=== PATIENT | male | born 1945 | race Caucasian/White ===

== ENCOUNTER 2018-05-02 15:50 | Outpatient (CLI) | payer MEDICARE ==
--- NOTE | 2018-05-02 17:23 | RAD ---
TWO VIEW CHEST: 05/02/18 INDICATION: Cough. No comparison. No evidence of lung infiltrate. Heart size is upper normal. Vascular markings are within normal range . Osseous structures are unremarkable. IMPRESSION: No evidence of focal infiltrate. POS: [facility]
== END 2018-05-02 15:51 | disposition home or self-care (01) ==
LOC: NAV RAD 15:50
PROVIDERS: ATTEND Family Medicine
DX: R05 Cough (principal)
CPT/HCPCS: 71046

== ENCOUNTER 2018-12-11 05:58 | Emergency (ER) | payer MEDICARE ==
[2018-12-11] MEDS ORDERED: Fluorescein Opthalmic Strip ONE (06:43)
[2018-12-11 06:57] LABS: #Basophils 0.1 thou/uL (0.0-0.2); #Eosinphils 0.2 thou/uL (0.0-0.7); #Lymphocytes 1.6 thou/uL (1.20-3.40); #Monocytes 0.5 thou/uL (0.11-0.59); #Neutrophils 3.2 thou/uL (1.40-6.50); %Basophils 1.2 % (0.0-1.0); %Lymphocytes 29.6 % (21.0-51.0); %Monocytes 9.3 % (0.0-10.0); %Neutrophils 56.9 % (42.0-75.0); Hemoglobin 14.2 g/dL (14.0-18.0); Mean Corpuscular HGB CONC 34.2 g/dL (32.0-36.0); Mean Corpuscular Hemoglobin 28.7 pg (27.0-31.0); Mean Corpuscular Volume 84.1 fL (78.0-98.0); Mean Platelet Volume 8.5 fL (7.4-10.4); Platelet Count 121 thou/uL (130-400); RBC Distribution Width 12.2 % (11.5-14.5); Red Blood Cell (RBC) Count 4.94 mill/uL (4.70-6.10); White Blood Cell (WBC) Count 5.5 thou/uL (4.8-10.8)
[2018-12-11 07:05] LABS: ALT (SGPT) 27 U/L (8-55); AST (SGOT) 20 U/L (5-34); Albumin 3.7 g/dL (3.4-4.8); Alkaline Phosphatase 74 U/L (40-150); Anion Gap 16 mmol/L (10-20); BUN (Urea Nitrogen) 28 mg/dL (8.4-25.7); Bilirubin, Total 0.5 mg/dL (0.2-1.2); Calc. Creatinine Clearance 0 mL/min (70-130); Calcium 9.7 mg/dL (7.8-10.44); Carbon Dioxide 18 mmol/L (23-31); Chloride 109 mmol/L (98-107); Estimated GFR-MDRD 46; Globulin 2.8 g/dL (2.4-3.5); Glucose 151 mg/dL (83-110); Potassium 4.1 mmol/L (3.5-5.1); Protein, Total 6.5 g/dL (5.8-8.1); Sodium 139 mmol/L (136-145)
[2018-12-11] MEDS ORDERED: Aspirin Chewable 81 MG TAB ONE (07:10)
[2018-12-11 07:23] LABS: CKMB 3.6 ng/mL (0-6.6)
[2018-12-11 08:21] LABS: Bilirubin Negative (Negative); Blood, Urine Negative (Negative); Clarity Clear (Clear); Glucose, Urine (Dipstick) Negative (Negative); Leukocyte Negative (Negative); Nitrite Negative (Negative); Protein, Urine (Dipstick) Negative (Neg-Trace); Urobilinogen 0.2 mg/dL (Less than 2)
--- NOTE | 2018-12-11 09:04 | RAD ---
CHEST 2 VIEWS: Date: 12/11/18 HISTORY: Chest pain. COMPARISON: 05/02/18. FINDINGS: No confluent pneumonia. No overt edema. IMPRESSION: Borderline size heart. No acute intrathoracic disease. No evidence for pneumonia or acute edema. POS: [facility]
== END 2018-12-11 08:33 | disposition home or self-care (01) ==
LOC: NAV ERS 05:58
DX: I20.8 Other forms of angina pectoris (principal); B02.9 Zoster without complications; I10 Essential (primary) hypertension; Z79.82 Long term (current) use of aspirin
CPT/HCPCS: 71046; 80053; 81003; 82553; 83880; 84484; 85025; 93005; 94760

== ENCOUNTER 2020-10-29 20:32 | Emergency (ER) | payer MEDICARE | END 2020-10-29 21:42 | disposition home or self-care (01) | LOC: NAV ERS 20:32 | DX: K56.41 Fecal impaction (principal); J44.9 Chronic obstructive pulmonary disease, unspecified; E78.5 Hyperlipidemia, unspecified; K21.9 Gastro-esophageal reflux disease without esophagitis; I11.0 Hypertensive heart disease with heart failure; I50.9 Heart failure, unspecified; N40.0 Benign prostatic hyperplasia without lower urinary tract symptoms; Z79.899 Other long term (current) drug therapy | CPT/HCPCS: 99283 ==

== ENCOUNTER 2021-08-28 14:41 | Emergency (ER) | payer MEDICARE ==
[2021-08-28 15:17] LABS: #Basophils 0.1 thou/uL (0.0-0.2); #Eosinphils 0.1 thou/uL (0.0-0.7); #Lymphocytes 2.7 thou/uL (1.20-3.40); #Monocytes 0.4 thou/uL (0.11-0.59); #Neutrophils 3.7 thou/uL (1.40-6.50); %Eosinophils 1.3 % (0.0-10.0); %Lymphocytes 39.4 % (21.0-51.0); %Monocytes 5.5 % (0.0-10.0); %Neutrophils 52.9 % (42.0-75.0); Hemoglobin 16.1 g/dL (14.0-18.0); Mean Corpuscular HGB CONC 30.7 g/dL (32.0-36.0); Mean Corpuscular Volume 91.2 fL (78.0-98.0); Mean Platelet Volume 9.4 fL (7.4-10.4); Platelet Count 182 thou/uL (130-400); RBC Distribution Width 12.8 % (11.5-14.5); Red Blood Cell (RBC) Count 5.76 mill/uL (4.70-6.10); White Blood Cell (WBC) Count 6.9 thou/uL (4.8-10.8)
== END 2021-08-28 15:42 | disposition home or self-care (01) ==
LOC: NAV ERS 14:41
DX: K59.00 Constipation, unspecified (principal); K21.9 Gastro-esophageal reflux disease without esophagitis; E78.5 Hyperlipidemia, unspecified; J44.9 Chronic obstructive pulmonary disease, unspecified; I48.91 Unspecified atrial fibrillation; I11.0 Hypertensive heart disease with heart failure; I50.9 Heart failure, unspecified; Z85.46 Personal history of malignant neoplasm of prostate; Z95.0 Presence of cardiac pacemaker
CPT/HCPCS: 85025; 99284

== ENCOUNTER 2023-12-27 13:42 | Emergency (ER) | payer OTHER ==
[2023-12-27 14:02] LABS: #Basophils 0.1 thou/uL (0.0-0.2); #Eosinphils 0.1 thou/uL (0.0-0.7); #Lymphocytes 2.2 thou/uL (1.20-3.40); #Monocytes 0.4 thou/uL (0.11-0.59); #Neutrophils 3.8 thou/uL (1.40-6.50); %Basophils 1.2 % (0.0-1.0); %Eosinophils 1.7 % (0.0-10.0); %Lymphocytes 33.5 % (21.0-51.0); %Monocytes 5.3 % (0.0-10.0); %Neutrophils 58.3 % (42.0-75.0); Hematocrit 40.9 % (42.0-52.0); Hemoglobin 13.1 g/dL (14.0-18.0); Mean Corpuscular Hemoglobin 28.5 pg (27.0-31.0); Mean Platelet Volume 8.4 fL (7.4-10.4); Platelet Count 141 10x3/uL (130-400); RBC Distribution Width 14.4 % (11.5-14.5); White Blood Cell (WBC) Count 6.5 10x3/uL (4.8-10.8)
[2023-12-27 14:13] LABS: INR-International Normal Ratio 1.2; Prothrombin Time 14.8 sec (12.0-14.7)
[2023-12-27 14:14] LABS: PTT 28.5 sec (22.9-36.1)
[2023-12-27 14:20] LABS: ALT (SGPT) 12 U/L (8-55); AST (SGOT) 15 U/L (5-34); Albumin 3.4 g/dL (3.4-4.8); Alkaline Phosphatase 76 U/L (40-110); Anion Gap 15 mmol/L (10-20); BUN (Urea Nitrogen) 26 mg/dL (8.4-25.7); Bilirubin, Total 1.2 mg/dL (0.2-1.2); Calc. Creatinine Clearance 0 mL/min (70-130); Calcium 9.7 mg/dL (7.8-10.44); Carbon Dioxide 17 mmol/L (23-31); Chloride 111 mmol/L (98-107); Estimated GFR 57; Globulin 3.4 g/dL (2.4-3.5); Glucose 161 mg/dL (83-110); Potassium 3.8 mmol/L (3.5-5.1); Protein, Total 6.8 g/dL (5.8-8.1); Sodium 139 mmol/L (136-145)
[2023-12-27 14:21] LABS: Troponin I 0.129 ng/mL (< 0.028)
[2023-12-27] MEDS ORDERED: fentaNYL 50 mcg/mL 1 mL Vial ONE (15:16)
[2023-12-27] MEDS ORDERED: Ondansetron PF 4 MG/2 ML Vial ONE (15:16)
[2023-12-27] MEDS ORDERED: Aspirin 300 MG Suppository ONE ×2 (15:17→15:21)
== END 2023-12-27 15:41 | disposition short-term general hospital (02) ==
LOC: NAV ERS 13:42
DX: I63.9 Cerebral infarction, unspecified (principal); I10 Essential (primary) hypertension; J44.9 Chronic obstructive pulmonary disease, unspecified; E78.5 Hyperlipidemia, unspecified; K21.9 Gastro-esophageal reflux disease without esophagitis; I48.91 Unspecified atrial fibrillation; Z79.01 Long term (current) use of anticoagulants; Z86.73 Personal history of transient ischemic attack (TIA), and cerebral infarction without residual deficits; Z79.82 Long term (current) use of aspirin; Z79.899 Other long term (current) drug therapy
CPT/HCPCS: 36416; 70450; 70496; 80053; 84484; 85025; 85610; 85730; 93005; 96374; 96375; J2405; J3010

== ENCOUNTER 2024-01-01 14:11 | Inpatient (IN) | payer OTHER ==
[2024-01-07] MEDS: Pregabalin 50 MG CAP PO SCH (15:15)
[2024-01-07] MEDS: Acetaminophen 325 MG TAB PO PRN (20:24)
[2024-01-07] MEDS: Tamsulosin HCl 0.4 MG CAP PO SCH (20:25)
[2024-01-07] MEDS: Apixaban 5 MG TAB PO SCH (20:25)
[2024-01-07] MEDS: Atorvastatin Calcium 40 MG TAB PO SCH (20:27)
[2024-01-07] MEDS: Sacubitril 24MG/Valsartan 26 MG TAB PO SCH (20:27)
[2024-01-07] MEDS: Ranolazine ER 500 MG TAB PO SCH (20:27)
[2024-01-07] MEDS ORDERED: Sacubitril 24MG/Valsartan 26 MG TAB PO SCH (21:00)
[2024-01-08 05:27] LABS: #Eosinphils 0.1 thou/uL (0.0-0.7); #Lymphocytes 2.1 thou/uL (1.20-3.40); #Monocytes 0.5 thou/uL (0.11-0.59); #Neutrophils 2.7 thou/uL (1.40-6.50); %Basophils 0.9 % (0.0-1.0); %Eosinophils 1.6 % (0.0-10.0); %Lymphocytes 38.7 % (21.0-51.0); %Monocytes 9.4 % (0.0-10.0); %Neutrophils 49.5 % (42.0-75.0); Hematocrit 43.7 % (42.0-52.0); Hemoglobin 14.6 g/dL (14.0-18.0); Mean Corpuscular HGB CONC 33.3 g/dL (32.0-36.0); Mean Corpuscular Hemoglobin 30.2 pg (27.0-31.0); Mean Corpuscular Volume 90.7 fl (78.0-98.0); Mean Platelet Volume 9.6 fL (7.4-10.4); Platelet Count 160 10x3/uL (130-400); RBC Distribution Width 14.2 % (11.5-14.5); Red Blood Cell (RBC) Count 4.82 mill/uL (4.70-6.10); White Blood Cell (WBC) Count 5.5 10x3/uL (4.8-10.8)
[2024-01-08 05:42] LABS: ALT (SGPT) 11 U/L (8-55); AST (SGOT) 11 U/L (5-34); Albumin 3.1 g/dL (3.4-4.8); Alkaline Phosphatase 79 U/L (40-110); Anion Gap 14 mmol/L (10-20); BUN (Urea Nitrogen) 29 mg/dL (8.4-25.7); Bilirubin, Total 1.1 mg/dL (0.2-1.2); Calc. Creatinine Clearance 69 mL/min (70-130); Carbon Dioxide 18 mmol/L (23-31); Chloride 108 mmol/L (98-107); Estimated GFR 49; Globulin 3.3 g/dL (2.4-3.5); Glucose 107 mg/dL (83-110); Potassium 4.3 mmol/L (3.5-5.1); Protein, Total 6.4 g/dL (5.8-8.1); Sodium 136 mmol/L (136-145)
[2024-01-08] MEDS: Aspirin 81 mg Enteric Coated Tablet PO SCH (08:48)
[2024-01-08] MEDS: Pantoprazole DR 40 MG TAB PO SCH (08:48)
[2024-01-08] MEDS: [UNRECOGNIZED DRUG - OTHER] PO SCH (08:50)
[2024-01-08] MEDS ORDERED: Non-Formulary Item 1 EACH (Finasteride [Finasteride] 1 MG Tablet) PO SCH (09:00)
[2024-01-10] MEDS: Dapagliflozin Propanediol 10 MG TAB PO SCH (08:28)
[2024-01-10] MEDS: Fioricet 325/50/40 mg Tablet PO SCH (08:30)
[2024-01-10] MEDS: Ondansetron ODT 4 MG TAB PO PRN (08:51)
[2024-01-10] MEDS ORDERED: Dapagliflozin Propanediol 10 MG TAB PO SCH (09:00)
[2024-01-10] MEDS ORDERED: Empagliflozin 10 MG TAB PO SCH (09:00)
[2024-01-10] MEDS: Fioricet 325/50/40 mg Tablet PO PRN (16:12)
[2024-01-10] MEDS: Melatonin 3 MG TAB PO SCH (20:26)
[2024-01-11] MEDS: traMADol HCl 50 MG TAB PO PRN (15:44)
[2024-01-11] MEDS: Amoxicillin/Potassium Clav 875 MG TAB PO SCH (21:16)
[2024-01-12 05:15] LABS: #Basophils 0.1 thou/uL (0.0-0.2); #Eosinphils 0.1 thou/uL (0.0-0.7); #Lymphocytes 1.6 thou/uL (1.20-3.40); #Monocytes 0.5 thou/uL (0.11-0.59); #Neutrophils 2.7 thou/uL (1.40-6.50); %Basophils 1.3 % (0.0-1.0); %Lymphocytes 32.1 % (21.0-51.0); %Monocytes 9.4 % (0.0-10.0); %Neutrophils 55.2 % (42.0-75.0); Hematocrit 39.9 % (42.0-52.0); Mean Corpuscular HGB CONC 32.7 g/dL (32.0-36.0); Mean Corpuscular Hemoglobin 29.9 pg (27.0-31.0); Mean Corpuscular Volume 91.4 fl (78.0-98.0); Mean Platelet Volume 9.2 fL (7.4-10.4); Platelet Count 129 10x3/uL (130-400); RBC Distribution Width 13.8 % (11.5-14.5); Red Blood Cell (RBC) Count 4.36 mill/uL (4.70-6.10); White Blood Cell (WBC) Count 4.9 10x3/uL (4.8-10.8)
[2024-01-12 05:28] LABS: Anion Gap 13 mmol/L (10-20); BUN (Urea Nitrogen) 19 mg/dL (8.4-25.7); Calc. Creatinine Clearance 74 mL/min (70-130); Calcium 9.9 mg/dL (7.8-10.44); Carbon Dioxide 20 mmol/L (23-31); Chloride 108 mmol/L (98-107); Estimated GFR 53; Glucose 118 mg/dL (83-110); Sodium 137 mmol/L (136-145)
[2024-01-12] MEDS: Pregabalin 50 MG CAP PO SCH ×2 (10:05→14:42)
[2024-01-13] MEDS: traMADol HCl 50 MG TAB PO PRN (15:44)
[2024-01-13] MEDS: traZODone HCl 50 MG TAB PO SCH (21:53)
[2024-01-13] MEDS: Apixaban 5 MG TAB PO SCH (22:29)
[2024-01-14 06:15] VITALS: BMI 31.8
[2024-01-14 09:30] LABS: #Basophils 0.1 thou/uL (0.0-0.2); #Eosinphils 0.1 thou/uL (0.0-0.7); #Lymphocytes 2.2 thou/uL (1.20-3.40); #Monocytes 0.6 thou/uL (0.11-0.59); #Neutrophils 3.8 thou/uL (1.40-6.50); %Basophils 1.1 % (0.0-1.0); %Eosinophils 1.8 % (0.0-10.0); %Lymphocytes 32.7 % (21.0-51.0); %Monocytes 8.2 % (0.0-10.0); %Neutrophils 56.1 % (42.0-75.0); Hematocrit 43.8 % (42.0-52.0); Hemoglobin 14.4 g/dL (14.0-18.0); Mean Corpuscular HGB CONC 32.8 g/dL (32.0-36.0); Mean Corpuscular Volume 91.5 fl (78.0-98.0); Mean Platelet Volume 9.9 fL (7.4-10.4); Platelet Count 169 10x3/uL (130-400); RBC Distribution Width 13.9 % (11.5-14.5); Red Blood Cell (RBC) Count 4.79 mill/uL (4.70-6.10); White Blood Cell (WBC) Count 6.7 10x3/uL (4.8-10.8)
[2024-01-14] MEDS: Senokot S 8.6-50 MG TAB PO PRN (10:53)
[2024-01-14] MEDS: traZODone HCl 50 MG TAB PO SCH (20:47)
[2024-01-15 05:57] LABS: Hematocrit 38.6 % (42.0-52.0); Hemoglobin 12.6 g/dL (14.0-18.0); Platelet Count 144 10x3/uL (130-400)
[2024-01-15] MEDS: Bisacodyl 5 MG TAB PO PRN (06:33)
[2024-01-18 05:05] VITALS: BMI 32.5
[2024-01-18 07:40] VITALS: BP 94/51; TEMP 97.7
== END 2024-01-18 17:25 | disposition hospice, home (50) | DRG 57 ==
LOC: NAV ACUTE 01-07 14:06
PROVIDERS: ADMIT Student in an Organized Health Care Education/Training Program; ATTEND Student in an Organized Health Care Education/Training Program
DX: I69.322 Dysarthria following cerebral infarction (principal); I50.22 Chronic systolic (congestive) heart failure; I48.91 Unspecified atrial fibrillation; Z66 Do not resuscitate; E78.5 Hyperlipidemia, unspecified; N18.31 Chronic kidney disease, stage 3a; G47.00 Insomnia, unspecified; D69.6 Thrombocytopenia, unspecified; K21.9 Gastro-esophageal reflux disease without esophagitis; R53.81 Other malaise; N40.0 Benign prostatic hyperplasia without lower urinary tract symptoms; Z95.0 Presence of cardiac pacemaker; Z88.1 Allergy status to other antibiotic agents; Z79.01 Long term (current) use of anticoagulants; Z79.899 Other long term (current) drug therapy; J32.9 Chronic sinusitis, unspecified
CPT/HCPCS: 36415; 70450; 80048; 80053; 85014; 85018; 85025; 85049; Q0162